=== PATIENT | male | born 1950 | race Caucasian/White ===

== ENCOUNTER 2020-07-05 12:54 | Emergency (ER) | payer MEDICARE, OTHER ==
--- NOTE | 2020-07-05 13:07 | PDOC ---
History of Present Illness - General Chief Complaint: Lightheaded Stated Complaint: VERTIGO SINCE FRIDAY TAKES MECLIZINE WITH INTERM Time Seen by Provider: 07/05/20 13:07 - History of Present Illness Initial Comments: 07/05/20 14:14 70 M with hx neuropathy following herpes infection presented to the ED for vertigo. On Friday morning, patient admitted to slept on a funny position, woke up with a vertigo associated with nausea. The vertigo he described was spinning sensation. He quickly took his old prescription of Meclizine 25mg. It has been helping him since then. Now He only has vertigo if he tilted his head backward. He denies chest pain, heart palpitation, nausea, vomiting, abdominal pain, trauma, falling, change of strength or sensation. PMHX: as in HPI PSHX: see below Meds: meclizine. Allergies: ciprofloxacin, nitrofurantion, penicillin Tob: none Etoh: none Rec drugs: none PCP: Petar Palmer Neurologist : Neida from [facility]. ROS GENERAL/CONSTITUTIONAL: No fever or chills. No weakness. HEAD, EYES, EARS, NOSE AND THROAT: No change in vision. No ear pain or discharge. No sore throat. CARDIOVASCULAR: No chest pain or shortness of breath RESPIRATORY: No cough, wheezing, or hemoptysis. GASTROINTESTINAL: No nausea, vomiting, diarrhea or constipation. GENITOURINARY: No dysuria, frequency, or change in urination. MUSCULOSKELETAL: No joint or muscle swelling or pain. No neck or back pain. SKIN: No rash NEUROLOGIC: No headache, +vertigo, no loss of consciousness, or change in strength/sensation. ENDOCRINE: No increased thirst. No abnormal weight change HEMATOLOGIC/LYMPHATIC: No anemia, easy bleeding, or history of blood clots. ALLERGIC/IMMUNOLOGIC: No hives or skin allergy. PE GENERAL: Awake, alert, and fully oriented, in no acute distress, in a wheelchair. nourished. HEAD: No signs of trauma, normocephalic, atraumatic EYES: PERRLA, EOMI, sclera anicteric, conjunctiva clear ENT: Auricles normal inspection, hearing grossly normal, nares patent, oropharynx clear without exudates. Moist mucosa NECK: Normal ROM, supple, no lymphadenopathy, JVD, or masses LUNGS: No distress, speaks full sentences, clear to auscultation bilaterally HEART: Regular rate and rhythm, normal S1 and S2, no murmurs, rubs or gallops, peripheral pulses normal and equal bilaterally. ABDOMEN: Soft, nontender, normoactive bowel sounds. No guarding, no rebound. No masses EXTREMITIES : Normal inspection, Normal range of motion, no edema. No clubbing or cyanosis. NEUROLOGICAL: Cranial nerves II through XII grossly intact. Normal speech, , no focal sensorimotor deficits, no saccades during eye tracking. SKIN: Warm, Dry, normal turgor, no rashes or lesions noted 07/05/20 16:02 Past History - Medical History Allergies/Adverse Reactions: Allergies Allergy/AdvReac Type Severity Reaction Status Date / Time ciprofloxacin Allergy Intermediate FEVER Verified 07/05/20 12:56 ciprofloxacin HCl Allergy Intermediate FEVER Verified 07/05/20 12:56 [From Cipro] levofloxacin Allergy Intermediate FEVER Verified 07/05/20 12:56 nitrofurantoin Allergy Intermediate Verified 07/05/20 12:57 [From Macrobid] Penicillins Allergy Verified 07/05/20 12:56 Home Medications: Ambulatory Orders Ascorbic Acid [Vitamin C] 2,000 mg PO BID 07/05/20 Atorvastatin Ca [Lipitor] 10 mg PO HS 07/05/20 Baclofen 5 mg PO BID 07/05/20 Meclizine HCl 25 mg PO TID 7 Days #21 tablet 07/05/20 Meclizine HCl 25 mg PO TID 7 Days #21 tablet 07/05/20 Meloxicam 7.5 mg PO DAILY 07/05/20 Methenamine Hippurate [Hiprex [Nf] -] 1 gm PO BID 07/05/20 Cardiac Disorders: Yes (buddle branch block) GI Disorders: Yes (GERD) Disorders: Yes (ATONIC BLADDER, SELF CATH 4-10X/DAY) Hypercholesterolemia: Yes - Immunization History Td Vaccination: Yes TDAP Vaccination: No Immunization Up to Date: Yes - Psycho-Social/Smoking History Smoking History: Never smoked Number of Cigarettes Smoked Daily: 0 ED Treatment Course - LABORATORY CBC & Chemistry Diagram: 07/05/20 13:34 07/05/20 13:34 Medical Decision Making - Medical Decision Making 07/05/20 14:38 70 M with hx neuropathy following herpes infection presented to the ED with vertigo. Plan: -Imaging: CT scan head non contrast -CBC, CMP, troponin. -EKG: RBBB, Left anterior fascicular block , vent rate 60 , QTc 452, compared to previous EKG result 07/05/20 14:41 07/05/20 15:01 07/05/20 16:00 Bloodwork and imaging are negative. Stable to d/c . Referral to neurologist is given. ANtibody negative for covid. Discharge - Discharge Information Problems reviewed: Yes Clinical Impression/Diagnosis: Vertigo Condition: Stable Disposition: HOME - Additional Discharge Information Prescriptions: Meclizine HCl 25 mg PO TID 7 Days #21 tablet Meclizine HCl 25 mg PO TID 7 Days #21 tablet - Follow up/Referral Referrals: Edilberto Phillips MD [Staff Physician] - - Patient Discharge Instructions Patient Printed Discharge Instructions: DI for Vertigo Additional Instructions: You were seen in the ED for complaints of vertigo In the ED you were evaluated with bloodwork and imaging Your results were negative There does not appear to be an acute need for immediate hospitalization. You are advised to follow up with your Primary Care Physician and neurologist within 1 week. You were given a referral to a neurologist. But you already had your old neurologist. Please see him. You were given a prescription for meclizine. Return to the ED immediately if you experience worsening dizziness, headache, nausea, vomiting, change of sensation or strength. - Post Discharge Activity
[2020-07-05 13:16] VITALS: BP 146/79; PULSE 69; TEMP 98.3; BMI 33.6
--- NOTE | 2020-07-05 13:51 | PDOC ---
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 He has been having intermittent episodes of room spinning sensation/vertigo, worse with head movements. he has tried meclizine (old medication left from prior diagnosis) and hector maneuvers, with improvement. last CT imaging in 2013 neg for acute pathology, mild volume loss rx'd meclizine that time 07/05/20 14:00 - Physicial Exam PE: 07/05/20 14:01 Agree with the resident's HPI and PE as documented in the electronic medical record. NAD, well appearing, EOMI, PERRL, nl conjunctiva, anicteric; neck supple. lungs clear, RRR, abdomen soft nontender. no rebound, guarding. Back nontender. ZABALA x4, no focal neuro deficits. No peripheral edema. normal color for ethnicity, WWP. speech clear. CN II to Xii grossly intact. - Medical Decision Making 07/05/20 14:02 Vital Signs Temp Pulse Resp BP Pulse Ox 98.3 F 69 16 146/79 100 07/05/20 12:56 07/05/20 12:56 07/05/20 12:56 07/05/20 12:56 07/05/20 12:56 vitals reviewed wnl ddx. vertigo: bppv, labrynthitis, meniere's disease, stroke/CVA, ICH, verteobasilar insufficiency/posterior cva neuro intact, no focal deficits well appearing baseline with neuropathy from prior zoster infection affecting b/l lower extremities no acute sensory changes no active vertigo here CT head age related atrophy, no intracranial pathology noted. labs and lytes_wnl EKG with RBBB, unchanged from prior neg trop, reassuring. rx meclizine PMD/neuro followup return precautions 07/05/20 14:49 07/05/20 16:01 Discharge - Discharge Information Problems reviewed: Yes Clinical Impression/Diagnosis: Vertigo Condition: Stable Disposition: HOME - Admission No - Additional Discharge Information Prescriptions: Meclizine HCl 25 mg PO TID 7 Days #21 tablet Meclizine HCl 25 mg PO TID 7 Days #21 tablet - Follow up/Referral Referrals: Edilberto Phillips MD [Staff Physician] - - Patient Discharge Instructions Patient Printed Discharge Instructions: DI for Vertigo Additional Instructions: You were seen in the ED for complaints of vertigo In the ED you were evaluated with bloodwork and imaging Your results were negative There does not appear to be an acute need for immediate hospitalization. You are advised to follow up with your Primary Care Physician and neurologist within 1 week. You were given a referral to a neurologist. But you already had your old n eurologist. Please see him. You were given a prescription for meclizine. Return to the ED immediately if you experience worsening dizziness, headache, nausea, vomiting, change of sensation or strength. - Post Discharge Activity
[2020-07-05 15:42] LABS: HEMATOCRIT 41.2 % (35.4-49); HEMOGLOBIN 14.3 GM/dl (11.7-16.9); MCHC 34.6 g/dl (32.0-35.9); MEAN CELL VOLUME 89.6 fl (80-96); MEAN PLT VOLUME 8.7 fl (7.5-11.1); PLATELET COUNT 197 K/MM3 (134-434); RDW 13.2 % (11.9-15.9); WHITE BLOOD COUNT 8.2 K/mm3 (4.0-10.8)
[2020-07-05 15:44] LABS: BILIRUBIN,TOTAL 2.2 mg/dl (0.2-1); CREATININE 1.1 mg/dl (0.55-1.3)
--- NOTE | 2020-07-06 14:00 | EKG ---
Test Reason : Blood Pressure : / mmHG Vent. Rate : 060 BPM Atrial Rate : 182 BPM P-R Int : 158 ms QRS Dur : 146 ms QT Int : 452 ms P-R-T Axes : 070 -82 009 degrees QTc Int : 452 ms SINUS TACHYCARDIA WITH 2ND DEGREE A-V BLOCK WITH 3:1 A-V CONDUCTION RIGHT BUNDLE BRANCH BLOCK LEFT ANTERIOR FASCICULAR BLOCK BIFASCICULAR BLOCK ABNORMAL ECG NO PREVIOUS ECGS AVAILABLE Confirmed by OCHOA MORALES MD ([id number]) on 07/06/2020 2:00:40 PM Referred By: JARRETT BAILEY Confirmed By:OCHOA MORALES MD
== END 2020-07-05 16:04 | disposition home or self-care (01) ==
LOC: FER 12:54
DX: H81.10 Benign paroxysmal vertigo, unspecified ear (principal)
CPT/HCPCS: 36415; 70450-TC; 80053; 82550; 84484; 85027; 86769; 93005; 99285-25